=== PATIENT | female | born 1950 | race Hispanic/Latino ===

== ENCOUNTER 2020-11-09 01:24 | Emergency (ER) | payer MEDICARE ==
[2020-11-09 02:17] VITALS: BP 155/90
--- NOTE | 2020-11-09 04:47 | Emergency Department Report ---
ED General Adult HPI - General Chief complaint: Allergic Reaction Stated complaint: itching Time Seen by Provider: 11/09/20 04:42 Source: patient Mode of arrival: Ambulatory Limitations: No Limitations - History of Present Illness Initial comments: 70-year-old female patient with history of hypertension presents to the emergency department via EMS with complaints of diffuse pruritus [place] Patient states she has multiple food and environmental allergies. Current symptoms are consistent with prior allergic reactions. Patient is unsure if she may have consumed a type of food or accidentally exposed herself to an offending agent. Patient did not take any histamine blockers or steroids prior to arrival. Denies wheezing, shortness of breath, syncope, chest pain, dysphagia, rash. Denies all other complaints at this time. - Related Data Previous Rx's Medication Instructions Recorded Last Taken Type Famotidine [Pepcid] 20 mg PO BID 5 Days tablet 11/09/20 Unknown Rx Allergies Allergy/AdvReac Type Severity Reaction Status Date / Time No Known Allergies Allergy Unverified 11/09/20 02:06 ED Review of Systems ROS: Stated complaint: LIGHTHEADED,ABD PAIN Other details as noted in HPI Other: GENERAL: Negative for fever, chills, weight change, anorexia, fatigue. ENT: Negative for ear pain, difficulty hearing, sore throat, nasal congestion, epistaxis. CARDIOVASCULAR: Negative for chest pain, palpitations, lower extremity swelling. PULMONARY: Negative for cough, dyspnea, wheezing, orthopnea, cyanosis. GASTROINTESTINAL: Negative for abdominal pain, nausea, vomiting, diarrhea, constipation. MUSCULOSKELETAL: Negative for joint pain, joint swelling, myalgias, back pain, neck pain. NEUROLOGICAL: Negative for headache, seizure, syncope, paresthesias, weakness. INTEGUMENTARY: Positive for pruritus. HEMATOLOGICAL: Negative for hemoptysis, hematemesis, hematochezia, hematuria. PSYCHIATRIC: Negative for hallucinations, suicidal ideation, homicidal ideation, anxiety, depression. ED Past Medical Hx - Past Medical History Previous Medical History?: No - Surgical History Past Surgical History?: Yes Hx Appendectomy: Yes Additional Surgical History: cosmetic - Medications Home Medications: Home Medications Medication Instructions Recorded Confirmed Last Taken Type Famotidine [Pepcid] 20 mg PO BID 5 Days tablet 11/09/20 Unknown Rx ED Physical Exam - General Limitations: No Limitations - Other Other exam information: General: Awake and alert. No acute distress. Sleeping comfortably upon entering the room. Head: Atraumatic, normocephalic. Eyes: EOMI. Pupils are equal and round. Normal sclera and conjunctiva. ENT: Oral mucosa is moist. Normal pharyngeal exam. No angioedema. Airway is patent. Uvula is non-edematous. Neck: Supple. No lymphadenopathy. Pulmonary: No respiratory distress. Clear to auscultation bilaterally. No wheezing or stridor. Cardiac: Regular rate and rhythm. Pulses are palpable and equal bilaterally. No lower extremity cyanosis or edema. Skin: Warm and dry. No rashes. Abdomen: Soft, non-tender, non-protuberant. No guarding, rigidity, or rebound. Bowel sounds are normal. No organomegaly or masses noted. Back: Normal alignment. No CVA tenderness. Extremities: Symmetrical. Full range of motion intact. Neurological: Alert and oriented, appropriately interactive, no focal deficits. Psych: Cooperative. Appropriate mood and affect. Speech is evenly metered. Thoughts are logically construed. ED Course Vital Signs 11/09/20 02:02 Temperature 98.0 F Pulse Rate 89 Respiratory 20 Rate Blood Pressure 155/90 O2 Sat by Pulse 100 Oximetry ED Medical Decision Making - Medical Decision Making Patient presents to the emergency department with complaints of diffuse pruritus while at the [place] [facility]. Symptoms are consistent with prior allergic reactions. She is afebrile, hemodynamically stable, no hypoxia, no respiratory distress. No rash visualized on examination. She is resting comfortably, sleeping in the chair upon entering the examination room, no distress. No clinical indication for emergent administration of epinephrine. Patient was offered steroids but refused. She agreed to symptomatic treatment with histamine blockers. Discharged home to follow-up with primary care provider. Emphasized the importance of avoiding known dietary and environmental triggers, which may cause symptoms to recur. Strict return precautions provided. History, exam, diagnostic testing, and current condition do not suggest worrisome pathology to warrant further testing, continued ED treatment, admission, or surgical evaluation at this point. Given the low probability of a significant medical illness, it would be more likely to result in harm than b enefit to perform further testing at this stage. Discussed findings, presumptive diagnosis, need for follow-up and specific signs/symptoms that should prompt immediate return to the emergency department. Instructions were explained in detail to the patient in addition to giving written discharge information. Patient expressed understanding and was given the opportunity to ask questions, all of which were satisfactorily answered prior to discharge home. Critical care attestation.: If time is entered above; I have spent that time in minutes in the direct care of this critically ill patient, excluding procedure time. ED Disposition Clinical Impression: Pruritus Disposition: [id number] TO HOME OR SELFCARE Is pt being admited?: No Does the pt Need Aspirin: No Condition: Stable Instructions: Pruritus Additional Instructions: Take Pepcid as directed. Take Benadryl as directed. Avoid known environmental and dietary triggers, which may cause your symptoms to recur. Follow-up with primary care provider this week. Call today to schedule an appointment. Return to the emergency department immediately for new or worsening symptoms. Specifically, return to the emergency department immediately for swelling of the tongue/lips, difficulty breathing, wheezing, mental status changes, rash, or any other concerns. Prescriptions: Famotidine [Pepcid] 20 mg PO BID 5 Days tablet Referrals: [facility] [Provider Group] - 3-5 Days Time of Disposition: 04:49
[2020-11-09] MEDS ORDERED: diphenhydrAMINE 25 MG CAP PO ONE (04:49)
[2020-11-09] MEDS ORDERED: FAMOTIDINE 20 MG TAB PO ONE (04:49)
== END 2020-11-09 05:20 | disposition home or self-care (01) ==
LOC: ED 01:24
DX: L29.9 Pruritus, unspecified (principal); Z98.890 Other specified postprocedural states
CPT/HCPCS: 99282